=== PATIENT | male | born 1970 ===

== ENCOUNTER 2018-09-11 10:23 | Day surgery (SDC) | payer OTHER ==
--- NOTE | 2018-09-10 15:45 | Pre-op HX & Phy Repo 2 SIG ---
DATE OF OUT-PATIENT ENDOSCOPY: 09/11/2018 HISTORY OF PRESENT ILLNESS: The patient has a past history of ulcerative colitis and in September 2001 underwent proctocolectomy with Kendra ileostomy. In March 2002 he underwent conversion of his conventional ileostomy to a [place] type of [place] pouch continent ileostomy. He has had multiple revisions, all of which will be listed at the end of this dictation. Ever since his pouch was created, the patient has had pouchitis, which has been treatment resistant. He is intolerant of oral Flagyl and mesalamine. He has been tried on Rowasa (mesalamine) irrigations, hydrocortisone enemas, Xifaxan, and over many years Cipro. Currently, he takes both Cipro and cefdinir daily for the past two years. He had a brief period of time in the summer of 2017 when he was off all antibiotics and recently his pouchitis recurred. He had been taking amoxicillin for a staph infection involving the skin of his nose. His pouch got better, but got worse again. He has also been on Alinia an antiparasitic to treat Giardia, but he has no knowledge of having tested positive for any parasites. The patient is going to undergo endoscopy of his pouch. He intubates 4 to 6 times per day, sleeps through the night. No difficulty intubating, occasional blood streak. Because the stoma tends to get smaller he uses a large stent, which he wears continuously. He does not have any incontinence. He has been told he has a bi-lobed pouch. He has also had repair of ventral hernia. PAST MEDICAL HISTORY AND MEDICATIONS: Cipro, cefdinir, amoxicillin, Alinia, Cialis, and Advil, probiotics. ALLERGIES: He is allergic to sulfa. He is intolerant of oral Flagyl and oral Pentasa (mesalamine). OPERATIONS: Please see list at the end of this dictation. PHYSICAL EXAMINATION: GENERAL: [place] He will be examined upon arrival and dictated separately. IMPRESSION: 1. Malfunctioning [place] continent ileostomy with chronic treatment resistant intractable pouchitis despite multiple treatment protocols. 2. History of ulcerative colitis. 3. STATUS POST MULTIPLE ABDOMINAL OPERATIONS: 4. Proctocolectomy and Kendra ileostomy, September 2001. 5. [place] continent intestinal reservoir, March 2002. 6. Revision of [place] continent ileostomy stoma and collar, 2005. 7. Revision of collar and access segment, 2007. 8. Repair of incisional hernia with mesh in the upper pole of midline incision, January 2011. 9. Revision of collar and access segment and reposition of stoma, January 2015 10. Revision of collar and access segment and repair of ventral hernia without mesh, January 2017 (all these operations were done by other surgeons except 2001 and 2005 operations) PLAN: The patient will undergo pouch endoscopy, which does not require any anesthesia or sedation. We will also do a Gastrografin pouchogram and then treatment recommendations will be made. The patient has been through a pouch endoscopy before and he understands and agrees to proceed. Diego Ortega M.D. DR: CHAYO JOB#: [id number] CC: ROMI
[~2018-09-11] VITALS: Ht 175.3 cm; Wt 70.3 kg
--- NOTE | 2018-09-11 11:01 | Pre-Procedure Note/Attestation ---
Pre-Procedure Note/Attestation Complete Prior to Procedure Planned Procedure: not applicable Procedure Narrative: [place] continent ileostomy pouch endoscopy Indications for Procedure Pre-Operative Diagnosis: intractable treatment resistant pouchitis Attestation I attest that I discussed the nature of the procedure; its benefits; risks and complications; and alternatives (and the risks and benefits of such alternatives ), prior to the procedure, with the patient (or the patient's legal small business representative). I attest that, if there was a reasonable possibility of needing a blood transfusion, the patient (or the patient's legal small business representative) was given the [facility] standardized written summary, pursuant to the Maxx Tess Blood Safety Act ([place] Health and Safety Code # 1645, as amended). I attest that I re-evaluated the patient just prior to the surgery and that there has been no change in the patient's H&P, except as documented below:none Diego Ortega MD Sep 11, 2018 11:01
[2018-09-11] MEDS ORDERED: AMOXICILLIN500 M1 PO (11:12)
[2018-09-11 11:21] VITALS: BP 120/80
--- NOTE | 2018-09-11 12:35 | Brief Operative Note ---
Immediate Post Operative Note Operative Note Pre-op Diagnosis: intractable treatment resistant pouchitis Procedure: [place] continent ileostomy pouch endoscopy Post-op Diagnosis: same Post-op Diagnosis: same as pre-op Findings: consistent w/pre-op dx studies Surgeon: mario Anesthesia: other - none Specimen: none Complications: none Condition: stable Fluids: none Estimated Blood Loss: none Drains: none Implant(s) used?: No Diego Ortega MD Sep 11, 2018 12:35
[2018-09-11 13:30] VITALS: BP 127/78
--- NOTE | 2018-09-11 14:15 | Pre-op HX & Phy Repo 2 SIG ---
DATE OF ENDOSCOPY: 09/11/2018 The patient has now arrived from out of town. Please see previously dictated history. PHYSICAL EXAMINATION: GENERAL: He is well developed, well nourished, 5 feet 9 inches, 154 pounds. HEENT: Within normal limits. LUNGS: Clear. HEART: Regular rhythm. BREASTS: Without masses. ABDOMEN: Soft. There is a long midline scar from xiphoid to pubis, which is rather wide throughout most of it. There is additional right lower quadrant transverse scar. The stoma of his [place] continent ileostomy is low in the right lower quadrant with a small chronically scarred orifice that readily accepts a 30-Armenian Riley catheter. There is no evidence of abdominal wall hernia. GENITALIA: Within normal limits. RECTAL: Status post proctectomy. EXTREMITIES: Without edema. NEUROLOGIC: Physiologic. IMPRESSION: Chronic intractable treatment-resistant pouchitis with past history of ulcerative colitis status post proctocolectomy with subsequent [place] continent ileostomy with multiple revisions. Please see previously dictated list. PLAN: Pouch endoscopy and pouchogram x-ray. Diego Ortega M.D. DR: CR JOB#: [id number] CC: ROMI
--- NOTE | 2018-09-11 17:30 | Procedure Note ---
DATE OF PROCEDURE: 09/11/2018 ENDOSCOPIST: Diego Ortega M.D. ANESTHESIA: None. SEDATION: None. PRE-ENDOSCOPY DIAGNOSES: 1. Intractable chronic treatment-resistant pouchitis affecting [place] continent ileostomy. 2. History of ulcerative colitis. 3. STATUS POST MULTIPLE ABDOMINAL OPERATIONS: 3.1. Proctocolectomy and Kendra ileostomy in September 2001. 3.2. [place] continent ileostomy in March 2002. 3.3. Multiple revisions primarily performed at other hospitals most recent 2017 POST-ENDOSCOPY DIAGNOSES: 1. Intractable chronic treatment-resistant pouchitis affecting [place] continent ileostomy. 2. History of ulcerative colitis. 3. STATUS POST MULTIPLE ABDOMINAL OPERATIONS: 3.1. Proctocolectomy and Kendra ileostomy in September 2001. 3.2. [place] continent ileostomy in March 2002. 3.3. Multiple revisions primarily performed at other hospitals most recent 2016 ENDOSCOPY PERFORMED: [place] continent ileostomy pouch endoscopy. FINDINGS: Diffuse scattered areas of erythema, superficial ulcerations, and exudate, which bleed slightly even with irrigation. The afferent bowel is normal. DESCRIPTION OF PROCEDURE: The patient was positioned supine in the GI lab without any anesthesia or sedation given or required. Using a GIF-P140 endoscope, the stoma was entered and the distance to the tip of the nipple valve was approximately 7 to 8 cm. The pouch was distensible, but there were diffuse scattered areas of chronic inflammation. The afferent bowel was entered and appeared normal up to 15 cm. Retroflexed views revealed a well-formed nipple valve with surrounding inflammatory changes as well. Withdrawal views confirmed the above findings. The access segment was straight. Following the endoscopy, I was able to readily insert a 28-Irish Husain catheter into the pouch to evacuate gas and contents. The catheter was taped to the skin and connected to a drainage bag to enable the patient to undergo pouchogram and retrograde small-bowel series. The patient tolerated the endoscopy well. Diego Ortega M.D. DR: Saji JOB#: [id number] CC: ROMI
--- NOTE | 2018-09-12 10:29 | Diagnostic Imaging Report ---
Indication: Continent ileostomy pouch inflammation, pain Technique: Contrast injected into continent ileostomy pouch via pre-existing Husain catheter. Serial spot images obtained in multiple obliquities Total fluoroscopy time 3.6 minutes. Total dose area product 245 dGycm2 Number of images: 20 Comparison: none Findings: Contrast readily fills what appears to be a single chamber continent ileostomy pouch. There is prompt and considerable reflux of contrast into the distal ileum. Distal ileum is mildly dilated, demonstrates normal mucosal pattern. The more proximal ileum is normal in caliber, also with normal mucosal pattern. The pouch drains nearly and completely on post drainage images. Refluxed contrast promptly refills the pouch. Impression: Essentially unremarkable continent ileostomy pouch as described. Images reviewed in person with Dr. Ortega
== END 2018-09-11 14:00 | disposition home or self-care (01) ==
LOC: GAS 10:23
DX: K91.850 Pouchitis (principal); Y83.8 Other surgical procedures as the cause of abnormal reaction of the patient, or of later complication, without mention of misadventure at the time of the procedure; Y92.89 Other specified places as the place of occurrence of the external cause; Z87.19 Personal history of other diseases of the digestive system; Z88.2 Allergy status to sulfonamides
CPT/HCPCS: 44385; 74270; Q9963

== ENCOUNTER 2019-06-03 11:56 | Day surgery (SDC) | payer BC ==
--- NOTE | 2019-06-02 15:00 | Pre-op HX & Phy Repo 2 SIG ---
DATE OF ADMISSION: 06/03/2019 SCHEDULED FOR OUTPATIENT ENDOSCOPY: 06/03/2019. HISTORY OF PRESENT ILLNESS: The patient is a 48-year-old male in overall good health, who has bleeding from his [place] continent ileostomy when he intubates. The patient has a past history of ulcerative colitis and has previously undergone proctocolectomy and ultimately with [place] continent ileostomy with multiple revisions, all will be listed at the end of this dictation. The patient underwent a pouch endoscopy in September 2018 because of chronic recurring pouchitis, treated with mesalamine irrigations, hydrocortisone enemas, Xifaxan, Cipro, and cefdinir. The endoscopy revealed diffuse scattered ulcerations and exudate. The afferent valve was normal. The valve appeared normal. Pouchogram was normal with reflux to the proximal ileum. All of which appeared normal. The patient made major dietary changes and his pouchitis symptoms resolved. However, recently he has had bleeding with intubation. He has been on the FODMAP diet, which has been very, very helpful. He requested pouch endoscopy, which I advised him to undergo because of dark output when he intubates and is not associated with inflammation. PAST MEDICAL HISTORY AND MEDICATIONS: Probiotics. ALLERGIES: He is allergic to sulfa. He is intolerant of oral Flagyl and oral Pentasa. OPERATIONS: See list at the end. PHYSICAL EXAMINATION: The patient is arriving from out of town, will be examined upon arrival and dictated separately. IMPRESSION: 1. Malfunctioning [place] continent ileostomy with bleeding with intubation and history of refractory chronic pouchitis, recently improved. 2. History of ulcerative colitis. 3. STATUS POST MULTIPLE ABDOMINAL OPERATIONS: 3.1. Proctocolectomy and Kendra ileostomy in September,. 3.2. [place] continent intestinal reservoir in March 2002. 3.3. Revision of [place] continent ileostomy stoma and collar in 2005. 3.4. Revision of collar and access segment 2007. 3.5. Repair of incisional hernia with mesh in the upper pole of the midline incision January 2011. 3.6. Revision of collar and access segment and reposition of stoma, January 2015. 3.7. Terminal revision of collar and access segment and repair of ventral hernia without mesh January,. All of these operations were done by other surgeons March 2002 and 2005. PLAN: The patient will undergo pouch endoscopy, which does not require any anesthesia or sedation. He understands and agrees to proceed. Diego Ortega M.D. DR: CHAYO JOB#: [id number] CC:
[~2019-06-03] VITALS: Ht 175.3 cm; Wt 69.4 kg
[~2019-06-03 11:56] MED LIST: AMOXICILLIN500 M1 PO
[2019-06-03] MEDS ORDERED: NKM (12:41)
[2019-06-03 12:47] VITALS: BP 116/72
--- NOTE | 2019-06-03 13:05 | Pre-Procedure Note/Attestation ---
Pre-Procedure Note/Attestation Complete Prior to Procedure Planned Procedure: not applicable Procedure Narrative: [place] continent ileostomy pouch endoscopy Indications for Procedure Pre-Operative Diagnosis: [place] pouch bleeding Attestation I attest that I discussed the nature of the procedure; its benefits; risks and complications; and alternatives (and the risks and benefits of such alternatives ), prior to the procedure, with the patient (or the patient's legal chain sales representative). I attest that, if there was a reasonable possibility of needing a blood transfusion, the patient (or the patient's legal chain sales representative) was given the [facility] standardized written summary, pursuant to the Maxx Tess Blood Safety Act ([place] Health and Safety Code # 1645, as amended). I attest that I re-evaluated the patient just prior to the surgery and that there has been no change in the patient's H&P, except as documented below: none Diego Ortega MD Jun 03, 2019 13:05
[2019-06-03 13:50] VITALS: BP 126/89
--- NOTE | 2019-06-03 14:02 | Brief Operative Note ---
Immediate Post Operative Note Operative Note Pre-op Diagnosis: [place] pouch bleeding Procedure: [place] continent ileostomy pouch endoscopy Post-op Diagnosis: scattered inflammation and superficial ulcerations of pouch Post-op Diagnosis: same as pre-op Findings: consistent w/pre-op dx studies Surgeon: mario Anesthesia: other - none Specimen: none Complications: none Condition: stable Fluids: none Estimated Blood Loss: none Drains: none Implant(s) used?: No Diego Ortega MD Jun 03, 2019 14:02
[2019-06-03 14:46] LABS: BASOPHILS % (AUTO) 0.7 % (0.0-2.0); EOSINOPHILS % (AUTO) 2.7 % (0.0-3.0); HEMATOCRIT 54.7 % (42.0-52.0); LYMPHOCYTES % (AUTO) 26.2 % (20.0-45.0); MEAN CORPUSCULAR VOLUME 89 FL (80-99); MONOCYTES % (AUTO) 7.7 % (1.0-10.0); NEUTROPHILS % (AUTO) 62.7 % (45.0-75.0); PLATELET COUNT 290 K/UL (150-450); RED BLOOD COUNT 6.12 M/UL (4.70-6.10); WHITE BLOOD COUNT 7.7 K/UL (4.8-10.8)
[2019-06-03 14:48] LABS: HEMOGLOBIN 18.4 G/DL (14.2-18.0)
[2019-06-03 15:21] LABS: FERRITIN 816 NG/ML (8-388)
[2019-06-03 15:49] LABS: % IRON SATURATION 21 % (15-50); IRON 77 ug/dL (50-175); TOTAL IRON BINDING CAPACITY 359 ug/dL (250-450)
--- NOTE | 2019-06-03 19:30 | Procedure Note ---
DATE OF PROCEDURE: 06/03/2019 ENDOSCOPIST: Diego Ortega M.D. PROCEDURE: Endoscopy. ANESTHESIA: None. SEDATION: None. PRE-ENDOSCOPIC DIAGNOSES: 1. Malfunctioning [place] continent ileostomy with bleeding and history of refractory chronic pouchitis. 2. History of ulcerative colitis. 3. Status post multiple abdominal operations including proctocolectomy, [place] continent ileostomy, and revisions, most recently in 2017. POST-ENDOSCOPY DIAGNOSES: 1. Malfunctioning [place] continent ileostomy with bleeding and history of refractory chronic pouchitis. 2. History of ulcerative colitis. 3. Status post multiple abdominal operations including proctocolectomy, [place] continent ileostomy, and revisions, most recently in 2017. ENDOSCOPY PERFORMED: [place] continent ileostomy pouch endoscopy. FINDINGS: Multiple areas of inflammation and superficial ulcerations in the pouch. DESCRIPTION OF PROCEDURE: The patient was taken to the GI lab, positioned supine without any anesthesia or sedation given or required. The abdomen is soft and flat with a midline scar. The stoma of the [place] continent ileostomy is low in the right lower quadrant and quite small, but admits a 30-Kyrgy[place] catheter and the GIF-P140 endoscope without difficulty. The endoscope presented through the stoma and the straight tract to the tip of the valve is approximately 9 cm without any ulcerations or bleeding. The pouch is distensible, but there were multiple areas of inflammation, although a large portion of the pouch mucosa appears normal. Retroflexed views revealed a circumferentially well-formed nipple valve. Withdrawal views confirmed the above findings. After the procedure, I was readily able to insert a 28-Kyrgyz Husain into the pouch to evacuate air incontinence. The patient tolerated the endoscopy well. He will be prescribed hydrocortisone retention enemas to instill into the pouch every night. CBC will be obtained. He tolerated the endoscopy well. Diego Ortega M.D. DR: JAVI JOB#: [id number] CC:
== END 2019-06-03 14:30 | disposition home or self-care (01) ==
LOC: GAS 11:56
DX: K94.13 Enterostomy malfunction (principal); Z88.2 Allergy status to sulfonamides
CPT/HCPCS: 36415; 82607; 82728; 82746; 83540; 83550; 85025